=== PATIENT | female | born 1955 | race Caucasian/White ===

== ENCOUNTER 2018-05-27 07:35 | Inpatient (IN) | payer OTHER ==
[2018-05-27] MEDS: SOD CHLORIDE 0.9% 1,000 ML IV ×3 (06:00→22:50)
[~2018-05-27 07:35] MED LIST: CEFAZOLIN 2 GM/50 ML (PMX) 50 ML IVPB; PROPOFOL 200 MG INJ
[2018-05-27] MEDS ORDERED: ROCURONIUM 50 MG INJ (11:24)
[2018-05-27] MEDS ORDERED: MIDAZOLAM 1 MG/ML 2 ML INJ (11:24)
[2018-05-27] MEDS ORDERED: LIDOCAINE 2% (SDV) 5 ML INJ (11:24)
[2018-05-27] MEDS ORDERED: SUCCINYLCHOLINE CHLORIDE 100 MG/5 ML SYG IV (11:24)
[2018-05-27] MEDS ORDERED: PROPOFOL 20 ML (11:24)
[2018-05-27] MEDS ORDERED: FENTAnyl 50 MCG/ML VIAL (11:25)
[2018-05-27] MEDS ORDERED: ROPIVACAINE 0.5 % 30 ML VIAL (11:25)
[2018-05-27] MEDS ORDERED: FENTAnyl 50 MCG/ML VIAL IV (11:30)
[2018-05-27] MEDS ORDERED: OXYCODONE/ACETAMINOPHEN (5/325) TAB PO (11:30)
[2018-05-27] MEDS ORDERED: LABETALOL HCL 20MG INJ IV (11:30)
[2018-05-27] MEDS ORDERED: MEPERIDINE 25 MG INJ IV (11:30)
[2018-05-27] MEDS ORDERED: DIPHENHYDRAMINE 50 MG INJ IV (11:30)
[2018-05-27] MEDS ORDERED: PHENYLephrine (100 MCG/ML) 5ML SYG (11:45)
[2018-05-27] MEDS ORDERED: FAMOTIDINE 20 MG INJ (11:52)
[2018-05-27] MEDS ORDERED: ONDANSETRON 4 MG INJ (11:52)
[2018-05-27] MEDS: BUPIVACAINE 0.25% (MPF) 30 ML INJ (11:55)
[2018-05-27] MEDS: POLYMYXIN/BACITRACIN 1L IRRIG IRR (11:56)
[2018-05-27] MEDS ORDERED: HYDROmorphONE 2 MG/ML SYG (11:56)
[2018-05-27] MEDS ORDERED: SUGAMMADEX SODIUM 200 MG/2 ML VIAL IV (12:42)
[2018-05-27] MEDS: HYDROmorphONE 1 MG/5 ML IV SYRINGE IV (13:25)
[2018-05-27] MEDS ORDERED: DEXTROSE 50% 50 ML SYRINGE IV ×2 (13:30)
[2018-05-27] MEDS ORDERED: GLUCAGON 1 MG INJ IM (13:30)
[2018-05-27] MEDS ORDERED: GLUCOSE GEL 15 GRAM TUBE PO ×2 (13:30)
[2018-05-27] MEDS ORDERED: GLUCOSE GEL 15 GRAM TUBE BUCCAL (13:30)
[2018-05-27] MEDS: INSULIN ASPART [NOVOLOG] 3 ML PEN SC ×2 (13:30→21:20)
[2018-05-27] MEDS: hydrALAzine 20 MG INJ IV (13:45)
[2018-05-27] MEDS: ONDANSETRON 4 MG INJ IV (13:46)
[2018-05-27 13:58] LABS: ADD MAN DIFF? NO
[2018-05-27 13:59] LABS: BASOPHILS % 0.4 % (0.0-2.0); EOSINOPHILS # 0.1 10^3/ul (0.0-0.5); EOSINOPHILS % 1.3 % (0.0-7.0); HEMOGLOBIN 12.7 g/dl (12.0-16.0); LYMPHOCYTES # 1.7 10^3/ul (0.8-2.9); LYMPHOCYTES % 23.3 % (15.0-51.0); MEAN CORPUSCULAR HEMOGLOBIN 30.1 pg (29.0-33.0); MEAN CORPUSCULAR HGB CONC 33.4 g/dl (32.0-37.0); MEAN PLATELET VOLUME 10.3 fl (7.4-10.4); MONOCYTE # 0.6 10^3/ul (0.3-0.9); MONOCYTES % 8.6 % (0.0-11.0); NEUTROPHIL # 4.9 10^3/ul (1.6-7.5); NEUTROPHILS % 66.1 % (39.0-77.0); PLATELET COUNT 215 10^3/UL (140-415); RED BLOOD COUNT 4.22 10^6/ul (4.20-5.40); RED CELL DISTRIBUTION WIDTH 12.2 % (11.5-14.5)
[2018-05-27 13:59] LABS: WHITE BLOOD COUNT 7.5 10^3/ul (4.8-10.8)
[2018-05-27 14:16] LABS: ALANINE AMINOTRANSFERASE 27 IU/L (13-69); ALBUMIN 4.1 g/dl (3.3-4.9); ALBUMIN/GLOBULIN RATIO 1.36; ALKALINE PHOSPHATASE 67 IU/L (42-121); ANION GAP 9 (5-13); ASPARTATE AMINO TRANSFERASE 23 IU/L (15-46); BILIRUBIN,INDIRECT 0.3 mg/dl (0-1.1); BILIRUBIN,TOTAL 0.3 mg/dl (0.2-1.3); BLOOD UREA NITROGEN 19 mg/dl (7-20); CALCIUM 8.7 mg/dl (8.4-10.2); CARBON DIOXIDE 24 mmol/L (21-31); CHLORIDE 109 mmol/L (97-110); CREATININE 0.59 mg/dl (0.44-1.00); Estimated GFR > 60 mL/min (>60); GLUCOSE 180 mg/dl (70-220); POTASSIUM 4.3 mmol/L (3.5-5.1); SODIUM 142 mmol/L (135-144); TOTAL PROTEIN 7.1 g/dl (6.1-8.1)
[2018-05-27] MEDS ORDERED: METOCLOPRAMIDE 10 MG INJ (14:39)
[2018-05-27] MEDS: CEFAZOLIN 2 GM/50 ML (PMX) 50 ML IVPB ×3 (14:51→22:37)
[2018-05-27] MEDS: METOCLOPRAMIDE 10 MG INJ IV (14:51)
[2018-05-27] MEDS: HYDROmorphONE 0.5 MG/0.5 ML SYG IV (16:49)
[2018-05-27] MEDS: HYDROCODONE/APAP (5/325) TAB PO (21:21)
[2018-05-27 23:28] LABS: CHOL/HDL RATIO 1.9 RATIO; HDL CHOLESTEROL 79 mg/dl (35-98); LDL CHOLESTEROL,CALCULATED 63 mg/dl; TRIGLYCERIDES 67 mg/dl (0-149)
[2018-05-27 23:28] LABS: CHOLESTEROL 155 mg/dl (100-200)
[2018-05-28] MEDS: HYDROmorphONE 0.5 MG/0.5 ML SYG IV ×3 (00:54→20:36)
[2018-05-28] MEDS: ACCU-CHEK XX ×5 (02:00→21:00)
[2018-05-28] MEDS: SOD CHLORIDE 0.9% 1,000 ML IV ×3 (04:29→20:37)
[2018-05-28] MEDS: CEFAZOLIN 2 GM/50 ML (PMX) 50 ML IVPB (04:56)
[2018-05-28 05:41] LABS: ADD MAN DIFF? NO
[2018-05-28 05:46] LABS: BASOPHILS % 0.2 % (0.0-2.0); HEMATOCRIT 39.3 % (37.0-47.0); HEMOGLOBIN 12.8 g/dl (12.0-16.0); LYMPHOCYTES # 1.3 10^3/ul (0.8-2.9); LYMPHOCYTES % 14.1 % (15.0-51.0); MEAN CORPUSCULAR HEMOGLOBIN 29.8 pg (29.0-33.0); MEAN CORPUSCULAR HGB CONC 32.6 g/dl (32.0-37.0); MEAN CORPUSCULAR VOLUME 91.6 fl (82.0-101.0); MEAN PLATELET VOLUME 11.4 fl (7.4-10.4); MONOCYTES % 10.8 % (0.0-11.0); NEUTROPHIL # 6.7 10^3/ul (1.6-7.5); NEUTROPHILS % 74.6 % (39.0-77.0); PLATELET COUNT 239 10^3/UL (140-415); RED BLOOD COUNT 4.29 10^6/ul (4.20-5.40); RED CELL DISTRIBUTION WIDTH 12.6 % (11.5-14.5)
[2018-05-28] MEDS: ONDANSETRON 4 MG INJ IV ×3 (06:05→20:34)
[2018-05-28 06:20] LABS: ALANINE AMINOTRANSFERASE 30 IU/L (13-69); ALBUMIN 4.1 g/dl (3.3-4.9); ALBUMIN/GLOBULIN RATIO 1.46; ALKALINE PHOSPHATASE 64 IU/L (42-121); ANION GAP 9 (5-13); ASPARTATE AMINO TRANSFERASE 24 IU/L (15-46); BILIRUBIN,INDIRECT 0.4 mg/dl (0-1.1); BILIRUBIN,TOTAL 0.4 mg/dl (0.2-1.3); BLOOD UREA NITROGEN 12 mg/dl (7-20); CALCIUM 8.6 mg/dl (8.4-10.2); CARBON DIOXIDE 27 mmol/L (21-31); CHLORIDE 104 mmol/L (97-110); CREATININE 0.65 mg/dl (0.44-1.00); Estimated GFR > 60 mL/min (>60); GLUCOSE 191 mg/dl (70-220); POTASSIUM 4.1 mmol/L (3.5-5.1); SODIUM 140 mmol/L (135-144); TOTAL PROTEIN 6.9 g/dl (6.1-8.1)
[2018-05-28] MEDS: INSULIN ASPART [NOVOLOG] 3 ML PEN SC ×4 (08:29→20:42)
[2018-05-28] MEDS: metFORMIN 500 MG TAB PO ×2 (08:30→17:59)
[2018-05-28 09:05] LABS: HEMOGLOBIN A1C 6.6 % (0-5.9)
[2018-05-28] MEDS: BENAZEPRIL 20 MG TAB PO (10:15)
[2018-05-28] MEDS: HYDROCHLOROTHIAZIDE 12.5 MG CAP PO (10:15)
[2018-05-28] MEDS: HYDROCODONE/APAP (5/325) TAB PO ×2 (13:05→23:47)
[2018-05-28] MEDS: ATORVASTATIN 40 MG TAB PO (20:40)
[2018-05-29] MEDS: ACCU-CHEK XX ×5 (02:00→20:53)
[2018-05-29 05:53] LABS: ADD MAN DIFF? NO
[2018-05-29 05:58] LABS: WHITE BLOOD COUNT 9.2 10^3/ul (4.8-10.8)
[2018-05-29 05:58] LABS: BASOPHILS % 0.2 % (0.0-2.0); EOSINOPHILS % 0.2 % (0.0-7.0); HEMATOCRIT 37.6 % (37.0-47.0); HEMOGLOBIN 12.4 g/dl (12.0-16.0); LYMPHOCYTES # 1.2 10^3/ul (0.8-2.9); LYMPHOCYTES % 12.5 % (15.0-51.0); MEAN CORPUSCULAR HEMOGLOBIN 29.7 pg (29.0-33.0); MEAN CORPUSCULAR VOLUME 90.2 fl (82.0-101.0); MEAN PLATELET VOLUME 10.9 fl (7.4-10.4); MONOCYTES % 10.7 % (0.0-11.0); NEUTROPHILS % 76.1 % (39.0-77.0); PLATELET COUNT 226 10^3/UL (140-415); RED BLOOD COUNT 4.17 10^6/ul (4.20-5.40); RED CELL DISTRIBUTION WIDTH 12.6 % (11.5-14.5)
[2018-05-29] MEDS: SOD CHLORIDE 0.9% 1,000 ML IV ×2 (05:59→16:24)
[2018-05-29] MEDS: ONDANSETRON 4 MG INJ IV ×4 (06:10→23:14)
[2018-05-29 06:23] LABS: ANION GAP 7 (5-13); BLOOD UREA NITROGEN 8 mg/dl (7-20); CALCIUM 8.6 mg/dl (8.4-10.2); CARBON DIOXIDE 25 mmol/L (21-31); CHLORIDE 105 mmol/L (97-110); CREATININE 0.53 mg/dl (0.44-1.00); Estimated GFR > 60 mL/min (>60); GLUCOSE 190 mg/dl (70-220); POTASSIUM 3.7 mmol/L (3.5-5.1); SODIUM 137 mmol/L (135-144)
[2018-05-29] MEDS: HYDROmorphONE 0.5 MG/0.5 ML SYG IV (07:53)
[2018-05-29] MEDS: metFORMIN 500 MG TAB PO ×2 (08:38→17:48)
[2018-05-29] MEDS: HYDROCHLOROTHIAZIDE 12.5 MG CAP PO (08:39)
[2018-05-29] MEDS: BENAZEPRIL 20 MG TAB PO (08:40)
[2018-05-29] MEDS: INSULIN ASPART [NOVOLOG] 3 ML PEN SC ×4 (08:43→20:53)
[2018-05-29] MEDS: METOCLOPRAMIDE 10 MG INJ IV (12:49)
[2018-05-29] MEDS: BISACODYL (EC) 5 MG TAB PO (12:49)
[2018-05-29] MEDS ORDERED: HYDROmorphONE 2 MG TAB PO (17:00)
[2018-05-29] MEDS: ATORVASTATIN 40 MG TAB PO (20:52)
[2018-05-30] MEDS: SOD CHLORIDE 0.9% 1,000 ML IV ×4 (00:50→23:14)
[2018-05-30] MEDS: ACCU-CHEK XX ×5 (01:32→20:12)
[2018-05-30] MEDS: BISACODYL (EC) 5 MG TAB PO (01:32)
[2018-05-30] MEDS: ONDANSETRON 4 MG INJ IV (07:58)
[2018-05-30] MEDS: metFORMIN 500 MG TAB PO ×2 (08:19→17:42)
[2018-05-30] MEDS: HYDROCHLOROTHIAZIDE 12.5 MG CAP PO (08:19)
[2018-05-30] MEDS: BENAZEPRIL 20 MG TAB PO (08:19)
[2018-05-30] MEDS: INSULIN ASPART [NOVOLOG] 3 ML PEN SC ×4 (08:23→20:12)
[2018-05-30] MEDS: HYDROCODONE/APAP (5/325) TAB PO (21:13)
[2018-05-30] MEDS: ATORVASTATIN 40 MG TAB PO (21:13)
[2018-05-31] MEDS: ACCU-CHEK XX ×3 (01:30→11:30)
[2018-05-31] MEDS: SOD CHLORIDE 0.9% 1,000 ML IV (05:50)
[2018-05-31] MEDS: HYDROCHLOROTHIAZIDE 12.5 MG CAP PO (08:01)
[2018-05-31] MEDS: metFORMIN 500 MG TAB PO (08:01)
[2018-05-31] MEDS: BENAZEPRIL 20 MG TAB PO (08:02)
[2018-05-31] MEDS: INSULIN ASPART [NOVOLOG] 3 ML PEN SC ×2 (08:14→12:00)
[2018-05-31] MEDS: HYDROCODONE/APAP (5/325) TAB PO (12:33)
== END 2018-05-31 15:05 | disposition home or self-care (01) | DRG 355 ==
LOC: SDS 07:35 → REC 12:50 → 2NE 16:10
PROVIDERS: Surgery
PROC: 0WUF0JZ Supplement Abdominal Wall with Synthetic Substitute, Open Approach (ICD-10-PCS; principal; 2018-05-27 10:30)
PROC: 0KXL0ZZ Transfer Left Abdomen Muscle, Open Approach (ICD-10-PCS; 2018-05-27 10:30)
PROC: 0KXK0ZZ Transfer Right Abdomen Muscle, Open Approach (ICD-10-PCS; 2018-05-27 10:30)
PROC: 0HX7XZZ Transfer Abdomen Skin, External Approach (ICD-10-PCS; 2018-05-27 10:30)
DX: K43.6 Other and unspecified ventral hernia with obstruction, without gangrene (principal); I10 Essential (primary) hypertension; E11.9 Type 2 diabetes mellitus without complications; E78.5 Hyperlipidemia, unspecified
CPT/HCPCS: 80048; 80053; 80061; 82962; 83036; 85025